=== PATIENT | male | born 1955 | race Caucasian/White ===

== ENCOUNTER 2023-09-14 04:55 | Day surgery (SDC) | payer OTHER ==
[2023-09-13 12:12] VITALS: BMI 29.5
[2023-09-14 08:35] LABS: POTASSIUM 4.1 mmol/L (3.5-5.1)
[2023-09-14 08:36] LABS: CALCIUM 9.2 mg/dL (8.5-10.1)
[2023-09-14 08:37] LABS: ALBUMIN 3.8 g/dl (3.4-5.0); BLOOD UREA NITROGEN 12.5 mg/dL (7-18)
[2023-09-14 08:40] LABS: CREATININE 0.9 mg/dL (0.55-1.3)
[2023-09-14 08:42] LABS: BILIRUBIN,TOTAL 1.5 mg/dL (0.2-1); TOT PROT 7.3 g/dl (6.4-8.2)
[2023-09-14] MEDS ORDERED: BUPIVACAINE HCL/PF 0.25% (2.5MG/ML) 10 ML VIAL ONE (09:16)
[2023-09-14] MEDS ORDERED: FENTANYL CITRATE/PF 50 MCG/ML VIAL ONE ×5 (10:06→12:44)
[2023-09-14] MEDS ORDERED: MIDAZOLAM HCL 2 MG/2 ML SINGLE DOSE VIAL ONE (10:07)
[2023-09-14] MEDS ORDERED: ROCURONIUM BROMIDE 50 MG/5 ML SYRINGE ONE (10:07)
[2023-09-14] MEDS ORDERED: PROPOFOL 40 ML ONE (10:07)
[2023-09-14] MEDS ORDERED: SUCCINYLCHOLINE CHLORIDE 200 MG/10 ML SYRINGE ONE (10:07)
[2023-09-14] MEDS ORDERED: cefOXitin SODIUM 2 GM VIAL (RESTRICTED TO ID) IVPB ONE ×2 (10:33→10:40)
[2023-09-14] MEDS ORDERED: BUPIVACAINE HCL/PF 2.5 MG/ML - 30 ML VIAL IJ ONE ×2 (10:43)
[2023-09-14] MEDS ORDERED: NEOSTIGMINE METHYLSULFATE 0.5 MG/1 ML - 10 ML MDV ONE (11:32)
[2023-09-14] MEDS ORDERED: oxyCODONE HCL 5 MG TABLET PO PRN (12:15)
[2023-09-14] MEDS ORDERED: PROMETHAZINE HCL 25 MG/1 ML VIAL IVPB PRN (12:15)
[2023-09-14 14:02] VITALS: RESP 20
[2023-09-14] MEDS ORDERED: oxyCODONE HCL 5 MG TABLET ONE (14:33)
[2023-09-14 14:52] VITALS: BP 128/60; PULSE 61; TEMP 97.7
== END 2023-09-14 16:05 | disposition home or self-care (01) ==
LOC: JASU-SURG 04:55
PROVIDERS: ATTEND Surgery
PROC: 8E0W4CZ Robotic Assisted Procedure of Trunk Region, Percutaneous Endoscopic Approach (ICD-10-PCS; 2023-09-14)
PROC: 0FT44ZZ Resection of Gallbladder, Percutaneous Endoscopic Approach (ICD-10-PCS; principal; 2023-09-14 10:00)
DX: K80.18 Calculus of gallbladder with other cholecystitis without obstruction (principal)
CPT/HCPCS: 47562; S2900; 36415; 80053; 88304-TC; 94760

== ENCOUNTER 2025-01-09 05:33 | Day surgery (SDC) | payer OTHER ==
[2024-12-25 11:42] VITALS: BMI 27.2
[2025-01-09 10:09] VITALS: TEMP 98
[2025-01-09 10:48] VITALS: PULSE 47
[2025-01-09 10:54] VITALS: BP 127/56; RESP 13
== END 2025-01-09 11:20 | disposition home or self-care (01) ==
LOC: JASU-ENDO 05:33
PROVIDERS: ATTEND Internal Medicine Gastroenterology
PROC: 0DB98ZX Excision of Duodenum, Via Natural or Artificial Opening Endoscopic, Diagnostic (ICD-10-PCS; 2025-01-09)
PROC: 0DB68ZX Excision of Stomach, Via Natural or Artificial Opening Endoscopic, Diagnostic (ICD-10-PCS; 2025-01-09)
PROC: 0DBN8ZX Excision of Sigmoid Colon, Via Natural or Artificial Opening Endoscopic, Diagnostic (ICD-10-PCS; principal; 2025-01-09 09:00)
DX: K29.50 Unspecified chronic gastritis without bleeding (principal); K29.80 Duodenitis without bleeding; D12.5 Benign neoplasm of sigmoid colon
CPT/HCPCS: 88305-TC; 88342-TC